=== PATIENT | male | born 1985 | race Caucasian/White ===

== ENCOUNTER 2018-04-23 15:06 | Emergency (ER) | payer BC ==
[~2018-04-23] VITALS: Ht 190.5 cm; Wt 90.7 kg
[2018-04-23 15:17] VITALS: BP 148/107
[2018-04-23 15:32] VITALS: BP 148/107
[2018-04-23 15:40] VITALS: BP 145/99
--- NOTE | 2018-04-23 15:49 | Emergency Room Report ---
History of Present Illness General Chief Complaint: Overdose Source: Patient, EMS, [employer] Enforcement Present Illness HPI 32-year-old male presents ED for evaluation. Brought in by EMS/[employer]. Behavioral complaint. Behaving in an agitated manner at convenient store today. Told [employer] that he used LSD. Was given Versed by EMS. Upon arrival patient is more calm and cooperative. Admits to LSD use. Denies any other drug use. Denies hearing voices. Denies any suicidal or homicidal ideation. No other aggravating relieving factors. Denies any other associated symptoms Allergies: Coded Allergies: No Known Allergies (Unverified , 04/23/18) Patient History Past Medical History: none Past Surgical History: none Pertinent Family History: none Social History: Denies: smoking, alcohol use, drug use Immunizations: UTD Reviewed Nursing Documentation: PMH: Agreed; PSxH: Agreed Nursing Documentation-PMH Past Medical History: No History, Except For Review of Systems All Other Systems: negative except mentioned in HPI Physical Exam Vital Signs Date Time Temp Pulse Resp B/P (MAP) Pulse Ox O2 Delivery O2 Flow Rate FiO2 04/23/18 15:00 99.4 121 18 148/107 98 Room Air 99.3 Sp02 EP Interpretation: reviewed, normal General Appearance: no apparent distress, alert, GCS 15, non-toxic Head: normocephalic, atraumatic Eyes: bilateral eye normal inspection, bilateral eye PERRL ENT: hearing grossly normal, normal pharynx, no angioedema, normal voice Neck: full range of motion, supple/symm/no masses Respiratory: chest non-tender, lungs clear, normal breath sounds, speaking full sentences Cardiovascular #1: regular rate, rhythm, no edema Cardiovascular #2: 2+ carotid (R), 2+ carotid (L), 2+ radial (R), 2+ radial (L) , 2+ dorsalis pedis (R), 2+ dorsalis pedis (L) Gastrointestinal: normal bowel sounds, non tender, soft, non-distended, no guarding, no rebound Rectal: deferred Genitourinary: normal inspection, no CVA tenderness Musculoskeletal: back normal, gait/station normal, normal range of motion, non- tender Neurologic: alert, oriented x3, responsive, motor strength/tone normal, sensory intact, speech normal Psychiatric: judgement/insight normal, memory normal, mood/affect normal, no suicidal/homicidal ideation Reflexes: 3+ bicep (R), 3+ bicep (L), 3+ tricep (R), 3+ tricep (L), 3+ knee (R) , 3+ knee (L) Skin: normal color, no rash, warm/dry, well hydrated Lymphatic: no adenopathy Medical Decision Making Diagnostic Impression: Primary Impression: Substance abuse ER Course Hospital Course 32-year-old M presents to ED with agitated behavior after LSD. given versed in field Differential diagnoses include: Psychosis, EtOH, drug abuse Clinical course patient placed on stretcher. After initial history, physical exam reveals male in no acute distress. Awake alert oriented 3. Maintains good eye contact during conversation. Admits to LSD use. No SI or HI. No hallucinations. Remainder physical exam unremarkable. Initially placed in restraints as per [employer] recommendation. After some observation patient along her required restraints as he was calm and cooperative. Walking through ED without difficulty. Patient safe for discharge at this time i. I feel this is a highly complex case requiring extensive working including EKG/Rhythm strip, Xray/CT/US, Blood/urine lab work, repeat exams while in ED, and administration of strong opiates/narcotics for pain control, admission to hospital or close patient follow up. Diagnosis - substance abuse Stable and discharged to home. Followup with PMD. Return to ED if symptoms recur or worsen Last Vital Signs Date Time Temp Pulse Resp B/P (MAP) Pulse Ox O2 Delivery O2 Flow Rate FiO2 04/23/18 15:27 121 18 Room Air 04/23/18 15:00 99.4 148/107 98 99.3 Status: improved Disposition: HOME, SELF-CARE Condition: Stable Brayden Downey MD Apr 23, 2018 15:49
[2018-04-23 16:00] VITALS: BP 132/89
[2018-04-23 16:17] VITALS: BP 132/89
== END 2018-04-23 16:17 | disposition home or self-care (01) ==
LOC: EDBD 15:06 → EMR 15:40
DX: F16.159 Hallucinogen abuse with hallucinogen-induced psychotic disorder, unspecified (principal)
CPT/HCPCS: 99284